=== PATIENT | male | born 2005 | race Caucasian/White ===

== ENCOUNTER 2024-08-07 10:39 | Emergency (ER) | payer OTHER, SELFPAY ==
--- NOTE | 2024-08-07 10:40 | XRR_ITS ---
PROCEDURE INFORMATION: Exam: XR Right Shoulder Exam date and time: 08/07/2024 10:47 AM Age: 19 years old Clinical indication: Pain; Shoulder; Right; Additional info: Injury TECHNIQUE: Imaging protocol: Radiologic exam of the right shoulder. Views: 2 or more views. COMPARISON: No relevant prior studies available. FINDINGS: Bones/joints: No acute fracture or dislocation. No suspicious lytic or blastic osseous lesions. The right acromioclavicular joint seen slightly misaligned. Question right acromioclavicular joint separation. Soft tissues: Unremarkable. XR/XR shoulder RT min 2V* [id number] IMPRESSION: No acute bony abnormality. Question right acromioclavicular joint separation. Recommend clinical correlation. If symptoms persist, consider repeat plain films in 7-10 days. If there is clinical concern for internal derangement, then consider further evaluation with MRI, if MRI is clinically safe to obtain.
[2024-08-07 10:48] VITALS: BP 131/61; PULSE 67; TEMP 36.6; O2SAT 100; BMI 26.4
--- NOTE | 2024-08-07 11:01 | ED_ITS ---
HPI - Extremity Problem General: Chief complaint: Extremity Injury, Upper Stated complaint: Right shoulder injury Time Seen by Provider: 08/07/24 10:40 Source: patient Mode of arrival: ambulatory Limitations: no limitations History of Present Illness: 19-year-old male states he is pulled kay k about this morning felt a pop in his right shoulder he did have right shoulder pain since that states is painful to move that right arm he did try to pull his bow back and was having pain at rest he has 0 pain denies any pain currently. Associated symptoms: Deny chest pain, fever(s) or rash Related Data Previous Rx's Medication Instructions Recorded naproxen 500 mg tablet (Naprosyn) 500 mg PO BID PRN pain #20 tabs 08/07/24 Allergies Allergy/AdvReac Type Severity Reaction Status Date / Time No Known Allergies Allergy Verified 08/07/24 10:54 Review of Systems Const: Denies: fever(s), chills, body aches or change in appetite ENMT: Denies: throat pain or dental pain Card: Denies: chest pain Resp: Denies: dyspnea GI: Denies: abdominal pain, nausea, vomiting or diarrhea Musc: Reports: extremity pain; Denies: neck pain or back pain Skin/Breast: Denies: rash Neuro: Denies: headache(s) PFSH ED PFSH: Surgical History Hx of tonsillectomy And adenoids Family History (Updated 07/08/24 @ 07:52 by Vincent Montoya MD) Grandfather Colon cancer Mother Carotid artery disease Hypertension Diabetes Grandmother , from [facility]ANK FR[facility] (nonalcoholic steatohepatitis) Diabetes Hypertension Social History Smoking and tobacco/nicotine status: current every day tobacco/nicotine user (smokeless tobacco, vapes) e-cigarettes E-Cigarette Details: vaporizer device E- cig/vape details: canister per two weeks Substance/Drug Use: never Physical Exam Const: COMMON NORMALS: no acute distress, patient oriented x3 and healthy appearing HENMT: COMMON NORMALS: normocephalic and atraumatic HEAD & SCALP: normocephalic and atraumatic Eye: COMMON NORMALS: conjunctivae normal CONJUNCTIVA: Yes conjunctivae normal Neck/C-Spine: COMMON NORMALS: full ROM and supple Chest: COMMONS NORMALS: normal inspection of the chest Resp: COMMON NORMALS: normal respiratory effort Cardio: COMMON NORMALS: regular rate and No murmurs present (Cardio) RATE: regular rate Extremity: COMMON NORMALS: normal to inspection and full ROM NARRATIVE EXTREMITY EXAM: Slight pain with range of motion no obvious deformity distal pulses sensation intact Neuro: COMMON NORMALS: patient oriented x3, moves all extremities and no focal motor deficits Psych: COMMON NORMALS: mental status grossly normal, Normal thought process present and cooperative THOUGHT PROCESS: Normal thought process present Skin: COMMON NORMALS: no rashes or lesions noted and no wounds GENERAL SKIN EXAM: no rashes or lesions noted Course Vital Signs: Vital signs: Vital Signs Temperature 97.8 F 08/07/24 10:48 Pulse Rate 67 08/07/24 10:48 Blood Pressure 131/61 08/07/24 10:48 Pulse Oximetry 100 08/07/24 10:48 Oxygen Delivery Me thod Room Air 08/07/24 10:48 MDM - Extremity (Nontraumatic) Medical Decision Making Patient presents here with right shoulder pain likely a strain x-ray is negative patient stable for discharge we will get follow-up orthopedics return if worsening. Medical Records I reviewed the patient's medical records. XR interpretation done by ED provider, pending radiology final review ED provider radiology interpretation(s): X-ray right shoulder no acute fracture Discharge Plan Discharge Patient Disposition: Home Clinical Impression: Right shoulder strain Qualifiers: Encounter type: initial encounter Qualified Code(s): S46.911A - Strain of unspecified muscle, fascia and tendon at shoulder and upper arm level, right arm, initial encounter Condition: Stable Prescriptions: New naproxen [Naprosyn] 500 mg tablet 500 mg PO BID PRN (Reason: pain) Qty: 20 0RF Discharge Orders: Discharge ED (Routine); Ordered 08/07/24 Ordered By: Tori Abdullahi Referrals: Roseline Marrero MD [Physician] - 4-7 days Discharge Diet: Advance as tolerated Discharge Activity: Resume usual activity Patient Instructions: Rotator Cuff Injury Exercises (DC) Coding Level of Care Code ED [employer] Engineer for Manuela Goodwin
[2024-08-07 11:17] VITALS: BP 135/74; PULSE 58; O2SAT 100
--- NOTE | 2024-08-08 07:50 | DCPLANNER ---
messaged ortho for er f/u
== END 2024-08-07 11:18 | disposition home or self-care (01) ==
PROVIDERS: Emergency Provider Emergency Medicine
DX: S46.911A Strain of unspecified muscle, fascia and tendon at shoulder and upper arm level, right arm, initial encounter (principal); F17.290 Nicotine dependence, other tobacco product, uncomplicated; X50.9XXA Other and unspecified overexertion or strenuous movements or postures, initial encounter
CPT/HCPCS: 73030; 99283

== ENCOUNTER → 2024-08-17 13:20 | Outpatient (BNVA) | payer OTHER, SELFPAY | PROVIDERS: Visit Provider Nurse Practitioner | DX: M25.511 Pain in right shoulder (principal); M75.21 Bicipital tendinitis, right shoulder; R03.0 Elevated blood-pressure reading, without diagnosis of hypertension | CPT/HCPCS: 73030 ==